=== PATIENT | female | born 1990 | race Caucasian/White ===

== ENCOUNTER 2018-01-05 15:34 | Emergency (ER) | payer OTHER ==
[2018-01-05 16:06] VITALS: BP 137/89
--- NOTE | 2018-01-05 16:36 | RADIOLOGY REPORT (SQ) ---
EXAM DESCRIPTION: KNEE LEFT 4 VIEW COMPLETED DATE/TIME: 01/05/2018 4:25 pm REASON FOR STUDY: pain COMPARISON: None. NUMBER OF VIEWS: Four views. TECHNIQUE: AP, lateral, and both oblique radiographic images acquired of the left knee. LIMITATIONS: None. FINDINGS: MINERALIZATION: Normal. BONES: No acute fracture or dislocation. No worrisome bone lesions. JOINT: No effusion. SOFT TISSUES: No soft tissue swelling. No radio-opaque foreign body. OTHER: No other significant finding. IMPRESSION: NEGATIVE STUDY OF THE LEFT KNEE. NO RADIOGRAPHIC EVIDENCE OF ACUTE INJURY. TECHNICAL DOCUMENTATION: JOB ID: [id number] [employer]- All Rights Reserved
--- NOTE | 2018-01-05 17:09 | ER Document Report ---
ED Extremity Problem, Lower - General Chief Complaint: Knee Injury Stated Complaint: LEFT KNEE PAIN Time Seen by Provider: 01/05/18 16:47 Mode of Arrival: Ambulatory Information source: Patient - HPI Notes: 27 yr old female with complaints of left knee pain today after jumping out of jeep while at work x 2 hours ago. 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 Pain 6/10, throbbing and constant. Tried otc motrin without full relief. Reports some swelling. Has not tried any icing. denies previous injury of knee. Unable to bear full weight. Denies any n/t in affected limb. Worse with ambulation, better when at rest. denies hitting head or change in loc. Denies any cp, sob, n/v/d, abd pain, dysuria and hematuria. - Related Data Allergies/Adverse Reactions: No Known Allergies Allergy (Unverified 01/05/18 16:02) Past Medical History - General Information source: Patient - Social History Smoking Status: Unknown if Ever Smoked Family History: Reviewed & Not Pertinent Review of Systems - Review of Systems Constitutional: No symptoms reported EENT: No symptoms reported Cardiovascular: No symptoms reported Respiratory: No symptoms reported Gastrointestinal: No symptoms reported Genitourinary: No symptoms reported Female Genitourinary: No symptoms reported Musculoskeletal: See HPI Skin: No symptoms reported Hematologic/Lymphatic: No symptoms reported Neurological/Psychological: No symptoms reported Physical Exam - Vital signs Vitals: Temp Pulse Resp BP Pulse Ox 98.7 F 81 12 137/89 H 99 01/05/18 16:05 01/05/18 16:05 01/05/18 16:05 01/05/18 16:05 01/05/18 16:05 - Notes Notes: PHYSICAL EXAMINATION: GENERAL: Well-appearing, well-nourished and in no acute distress. HEAD: Atraumatic, normocephalic. EYES: Pupils equal round and reactive to light, extraocular movements intact, conjunctiva are normal. ENT: Nares patent, oropharynx clear without exudates. Moist mucous membranes. NECK: Normal range of motion, supple without lymphadenopathy LUNGS: Breath sounds clear to auscultation bilaterally and equal. No wheezes rales or rhonchi. HEART: Regular rate and rhythm without murmurs ABDOMEN: Soft, nontender, nondistended abdomen. No guarding, no rebound. No masses appreciated. Female : deferred Musculoskeletal: Normal range of motion, no pitting or edema. No cyanosis. left knnee pain with palpation to lateral aspect of knee. negative luanne's sign. anterior and posterior drawer test negative.Dtr + 2 in BLE. Full motor and sensory function. Negative lachmans test and posterior/anterior drawer test.~ No open wounds. No induration or drainage. pulses + 2 bilaterally and equally. NEUROLOGICAL: Cranial nerves grossly intact. Normal speech, normal gait. Normal sensory, motor exams PSYCH: Normal mood, normal affect. SKIN: Warm, Dry, normal turgor, no rashes or lesions noted. - Cardiovascular Notes: PHYSICAL EXAMINATION: GENERAL: Well-appearing, well-nourished and in no acute distress. HEAD: Atraumatic, normocephalic. EYES: Pupils equal round and reactive to light, extraocular movements intact, conjunctiva are normal. ENT: Nares patent, oropharynx clear without exudates. Moist mucous membranes. NECK: Normal range of motion, supple without lymphadenopathy LUNGS: Breath sounds clear to auscultation bilaterally and equal. No wheezes rales or rhonchi. HEART: Regular rate and rhythm without murmurs ABDOMEN: Soft, nontender, nondistended abdomen. No guarding, no rebound. No masses appreciated. Female : deferred Musculoskeletal: Normal range of motion, no pitting or edema. No cyanosis. left knee NEUROLOGICAL: Cranial nerves grossly intact. Normal speech, normal gait. Normal sensory, motor exams PSYCH: Normal mood, normal affect. SKIN: Warm, Dry, normal turgor, no rashes or lesions noted. Course - Re-evaluation Re-evalutation: 01/05/18 19:02 Rechecked the patient who is resting comfortably. On re-exam, patient is symptomatically improved. Discussed the results of the radiology as well as the diagnosis at great length. Follow Rice therapy, wear knee immobilizer as directed, use crutches as directed. Follow-up with design engineering specialist within 1 week. Take [id number] ibuprofen and Tylenol for pain. After today apply heat 20 minutes on 20 minutes off several times a day. Discussed the need to return to the ER for any new or worsening sx. All questions answered. Patient comfortable with the decision to go home. - Vital Signs Vital signs: Temp Pulse Resp BP Pulse Ox 98.7 F 81 12 137/89 H 99 01/05/18 16:05 01/05/18 16:05 01/05/18 16:05 01/05/18 16:05 01/05/18 16:05 Discharge - Discharge Clinical Impression: Left knee sprain Qualifiers: Encounter type: initial encounter Involved ligament of knee: other ligament Qualified Code(s): S83.8X2A - Sprain of other specified parts of left knee, initial encounter Condition: Good Disposition: HOME, SELF-CARE Instructions: Use of Crutches ([facility]), Ice & Elevation ([facility]), Knee Immobilizing Splint ([facility]), Sprained Knee ([facility]) Additional Instructions: Orthopedic Office [facility] [address] [place] [id number] phone: [phone] Return immediately for any new or worsening symptoms. Follow up with primary care provider, call tomorrow to make followup appointment. Prescriptions: Ibuprofen 800 mg PO Q6HP PRN #20 tablet PRN Reason: Forms: Return to Work Referrals: JOSE OKEEFE MD [ACTIVE STAFF] - Follow up in 1 week LALO TORRE DO [ACTIVE STAFF] - Follow up in 3-5 days
== END 2018-01-05 17:23 | disposition home or self-care (01) ==
LOC: ER 15:34
DX: S83.8X2A Sprain of other specified parts of left knee, initial encounter (principal); M25.562 Pain in left knee; M79.89 Other specified soft tissue disorders; W17.89XA Other fall from one level to another, initial encounter
CPT/HCPCS: 99283; 73562; L1830